=== PATIENT | male | born 1965 | race Caucasian/White ===

== ENCOUNTER 2022-11-04 22:02 | Inpatient (IN) | payer MEDICARE, OTHER ==
[~2022-11-04] VITALS: Ht 190.5 cm; Wt 142.4 kg
[2022-11-04 23:11] VITALS: BP 103/59
[2022-11-04 23:32] LABS: Basophils # (auto) 0 10 ^3/uL (0-0.2); Basophils % (auto) 0.4 % (0.0-2.0); Eosinophils # (auto) 0.2 10 ^3/uL (0-0.8); Eosinophils % (auto) 2.4 % (0.0-7.0); Hematocrit 35.5 % (41.0-53.0); Hemoglobin 11.1 g/dL (13.5-17.5); Lymphocytes # (auto) 0.8 10 ^3/uL (0.4-5.4); Lymphocytes % (auto) 10.6 % (10.0-50.0); Mean Corpuscular Hemoglobin 29.3 pg (28.0-32.0); Mean Corpuscular Hgb Conc. 31.3 g/dL (32.0-36.0); Mean Corpuscular Volume 93.5 fL (80.0-100.0); Monocytes # (auto) 0.6 10 ^3/uL (0-1.3); Monocytes % (auto) 8.9 % (0.0-12.0); Neutrophils # (auto) 5.5 10 ^3/uL (1.6-8.6); Neutrophils % (auto) 77.7 % (37.0-80.0); Red Cell Distribution Width 16.6 % (11.8-14.3); White Blood Cell 7.1 10^3/uL (4.4-10.8)
[2022-11-04 23:51] LABS: Albumin 3.2 g/dL (3.4-5.0); BUN/Creatinine Ratio 20.8; Calcium 8.9 mg/dL (8.5-10.1); Potassium 4.9 mmol/L (3.5-5.1)
[2022-11-04 23:54] LABS: Bilirubin, Total 0.8 mg/dL (0.2-1.0); Total Protein 6.8 g/dL (6.4-8.2)
[2022-11-05 00:19] VITALS: BP 94/46
[2022-11-05 02:04] VITALS: BP 87/42
[2022-11-05] MEDS ORDERED: ONDANSETRON HCL 4 MG/2 ML VIAL IV PRN (02:15)
[2022-11-05] MEDS ORDERED: ACETAMINOPHEN 500 MG TAB PO PRN (02:15)
[2022-11-05] MEDS ORDERED: METOCLOPRAMIDE HCL 5MG/ml INJ 2ml VIAL IV PRN (02:15)
[2022-11-05] MEDS ORDERED: LORazepam 0.5 MG TAB PO PRN (02:15)
[2022-11-05] MEDS ORDERED: ACETAMINOPHEN 325 MG TAB PO PRN (02:15)
[2022-11-05] MEDS ORDERED: MAALOX PLUS or MAALOX 30 ML PO PRN (02:15)
[2022-11-05] MEDS ORDERED: DOCUSATE SOD 100 MG CAP PO PRN (02:15)
[2022-11-05] MEDS ORDERED: SODIUM CHLORIDE 0.9% 1,000 ML IV SCH (02:15)
[2022-11-05] MEDS ORDERED: NOREPINEPHRINE 8 MG/250ML KIT 250 ML IV SCH (03:00)
[2022-11-05] MEDS: DexAMETHasone SOD PHOS 10MG/1ML VIAL INJ IV SCH ×2 (03:10→09:27)
[2022-11-05] MEDS: ENOXAPARIN SOD 60 MG/0.6 ML SYRINGE SC SCH ×2 (03:10→18:32)
[2022-11-05] MEDS ORDERED: DOXYCYCLINE 100MG/250ML 250 ML IV SCH (04:00)
[2022-11-05] MEDS: AZITHROMYCIN 500MG/ 250ML 250 ML IV SCH ×2 (04:05→09:28)
[2022-11-05 04:06] VITALS: BP 89/39
[2022-11-05 05:49] LABS: Basophils # (auto) 0 10 ^3/uL (0-0.2); Basophils % (auto) 0.7 % (0.0-2.0); Eosinophils # (auto) 0.1 10 ^3/uL (0-0.8); Eosinophils % (auto) 1.9 % (0.0-7.0); Hematocrit 34.9 % (41.0-53.0); Hemoglobin 11.3 g/dL (13.5-17.5); Lymphocytes # (auto) 0.7 10 ^3/uL (0.4-5.4); Lymphocytes % (auto) 10.7 % (10.0-50.0); Mean Corpuscular Hemoglobin 30.1 pg (28.0-32.0); Mean Corpuscular Hgb Conc. 32.5 g/dL (32.0-36.0); Mean Corpuscular Volume 92.6 fL (80.0-100.0); Monocytes # (auto) 0.6 10 ^3/uL (0-1.3); Monocytes % (auto) 9.8 % (0.0-12.0); Neutrophils # (auto) 4.7 10 ^3/uL (1.6-8.6); Neutrophils % (auto) 76.9 % (37.0-80.0); Red Blood Cells 3.77 10^6/uL (4.5-5.90); Red Cell Distribution Width 16.8 % (11.8-14.3); White Blood Cell 6.1 10^3/uL (4.4-10.8)
[2022-11-05 06:11] LABS: BUN/Creatinine Ratio 20.1; Potassium 5.2 mmol/L (3.5-5.1)
[2022-11-05 07:27] LABS: Urine WBC None Seen /hpf (0 - 3)
[2022-11-05 08:07] LABS: Urine Bacteria FEW /hpf (None Seen); Urine Blood Negative /uL (Negative); Urine Specific Gravity 1.011 (1.001-1.035)
[2022-11-05] MEDS: ZINC SULFATE 220mg CAP or TAB PO SCH (09:27)
[2022-11-05] MEDS: CHOLECALCIFEROL (VITD3) 2,000 UNIT CAP/TAB PO SCH (09:27)
[2022-11-05] MEDS: ASCORBIC ACID 1,000 MG TAB PO SCH (09:27)
[2022-11-05 11:43] VITALS: BP 113/64
[2022-11-05] MEDS: ALBUTEROL SULF HFA 90MCG INH 200DOSE IN PRN (11:52)
[2022-11-05] MEDS ORDERED: DEXTROSE (50%) 50ML SYRG IV PRN (12:45)
[2022-11-05] MEDS ORDERED: ASPI81CH59 PO (12:46)
[2022-11-05] MEDS ORDERED: BUSP5TAB78 PO (12:46)
[2022-11-05] MEDS ORDERED: TAMS1CAP25 PO (12:46)
[2022-11-05] MEDS ORDERED: FERR-20 PO (12:46)
[2022-11-05] MEDS ORDERED: BUME1TAB3 PO (12:46)
[2022-11-05] MEDS ORDERED: GABA-339 PO (12:46)
[2022-11-05] MEDS ORDERED: POTA10TA51 PO (12:46)
[2022-11-05] MEDS ORDERED: TRAZ50TA2 PO (12:46)
[2022-11-05] MEDS ORDERED: LISI2.5T47 PO (12:46)
[2022-11-05] MEDS ORDERED: INSUINJ3 SC (12:46)
[2022-11-05] MEDS ORDERED: ALBU0.084 NEB (12:46)
[2022-11-05] MEDS ORDERED: BISO5TAB44 PO (12:46)
[2022-11-05] MEDS ORDERED: ASPI325T4 PO (12:46)
[2022-11-05] MEDS ORDERED: ROSU1TAB14 PO (12:46)
[2022-11-05] MEDS ORDERED: DIPH25CA66 PO (12:46)
[2022-11-05] MEDS ORDERED: NORT25CA GT (12:46)
[2022-11-05] MEDS ORDERED: PRED20TA2 PO (12:46)
[2022-11-05] MEDS ORDERED: ASPirin 81 mg TAB PO ONE (13:00)
[2022-11-05] MEDS ORDERED: DOPamine 1600MCG/ML D5W 250 ML IV SCH (14:15)
[2022-11-05 14:30] VITALS: BP 134/77
[2022-11-05] MEDS ORDERED: SODIUM ZIRCONIUM CYCL 10 GM PAK PO ONE (14:30)
[2022-11-05] MEDS: GABAPENTIN 300 MG CAP PO SCH ×2 (15:17→23:18)
[2022-11-05] MEDS: SODIUM CHLORIDE 0.9% 1,000 ML IV SCH ×2 (15:18→23:18)
[2022-11-05 16:15] VITALS: BP 123/63
[2022-11-05] MEDS: InsuLIN REG 1unit/0.01ml Soln (100units/ml) SC SCH (17:24)
[2022-11-05] MEDS: ACCU-CHEK COMFORT CURVE STRIP VI SCH ×2 (17:24→23:14)
[2022-11-05] MEDS: TAMSULOSIN HYDROCHLORIDE 0.4 MG CAP PO SCH (18:32)
[2022-11-05] MEDS ORDERED: InsuLIN REG 1unit/0.01ml Soln (100units/ml) SC SCH (22:00)
[2022-11-06] MEDS: ALBUTEROL SULF HFA 90MCG INH 200DOSE IN PRN (05:23)
[2022-11-06 05:37] LABS: Basophils # (auto) 0 10 ^3/uL (0-0.2); Basophils % (auto) 0.6 % (0.0-2.0); Eosinophils # (auto) 0 10 ^3/uL (0-0.8); Eosinophils % (auto) 0.2 % (0.0-7.0); Hematocrit 37.5 % (41.0-53.0); Hemoglobin 12.1 g/dL (13.5-17.5); Lymphocytes % (auto) 20.9 % (10.0-50.0); Mean Corpuscular Hemoglobin 29.8 pg (28.0-32.0); Mean Corpuscular Hgb Conc. 32.2 g/dL (32.0-36.0); Mean Corpuscular Volume 92.6 fL (80.0-100.0); Monocytes # (auto) 0.6 10 ^3/uL (0-1.3); Monocytes % (auto) 13.2 % (0.0-12.0); Neutrophils # (auto) 3.2 10 ^3/uL (1.6-8.6); Neutrophils % (auto) 65.1 % (37.0-80.0); Nucleated Red Blood Cells % 0.1 %; Red Blood Cells 4.05 10^6/uL (4.5-5.90); Red Cell Distribution Width 16.7 % (11.8-14.3); White Blood Cell 4.9 10^3/uL (4.4-10.8)
[2022-11-06 05:54] LABS: Calcium 9.6 mg/dL (8.5-10.1); Potassium 4.6 mmol/L (3.5-5.1)
[2022-11-06] MEDS: GABAPENTIN 300 MG CAP PO SCH ×3 (06:30→22:05)
[2022-11-06] MEDS: ENOXAPARIN SOD 60 MG/0.6 ML SYRINGE SC SCH ×2 (06:31→18:32)
[2022-11-06] MEDS: ACCU-CHEK COMFORT CURVE STRIP VI SCH ×5 (06:31→22:27)
[2022-11-06] MEDS: InsuLIN REG 1unit/0.01ml Soln (100units/ml) SC SCH ×4 (06:41→22:00)
[2022-11-06] MEDS: SODIUM CHLORIDE 0.9% 1,000 ML IV SCH ×2 (09:03→11:24)
[2022-11-06] MEDS: MORPHINE SULFATE INJ 2 MG/ml SYRG IV PRN (09:29)
[2022-11-06] MEDS: AZITHROMYCIN 500MG/ 250ML 250 ML IV SCH (10:57)
[2022-11-06] MEDS: DexAMETHasone SOD PHOS 10MG/1ML VIAL INJ IV SCH (10:57)
[2022-11-06] MEDS: ASCORBIC ACID 1,000 MG TAB PO SCH (10:57)
[2022-11-06] MEDS: ASPirin 81 mg TAB PO SCH (10:58)
[2022-11-06] MEDS: CHOLECALCIFEROL (VITD3) 2,000 UNIT CAP/TAB PO SCH (10:58)
[2022-11-06] MEDS: ZINC SULFATE 220mg CAP or TAB PO SCH (11:23)
[2022-11-06] MEDS: TAMSULOSIN HYDROCHLORIDE 0.4 MG CAP PO SCH (18:32)
[2022-11-06 18:43] VITALS: BP 142/76
[2022-11-06 19:16] VITALS: BP 142/76
[2022-11-06 22:00] VITALS: BP 142/79
[2022-11-06 22:00] LABS: Protein, Urine 24.1 mg/dL (0.0-11.9)
[2022-11-06] MEDS ORDERED: InsuLIN REG 1unit/0.01ml Soln (100units/ml) SC ONE (22:00)
[2022-11-06] MEDS ORDERED: DEXTROSE (50%) 50ML SYRG IV PRN (22:00)
[2022-11-06 22:04] LABS: Creatinine, Urine 78.6 mg/dL (30.0-125.0)
[2022-11-07] VITALS (7 sets, daily range): BP systolic 113–138; BP diastolic 52–82
[2022-11-07] MEDS: MORPHINE SULFATE INJ 2 MG/ml SYRG IV PRN ×3 (01:02→21:57)
[2022-11-07] MEDS: GABAPENTIN 300 MG CAP PO SCH ×3 (06:05→21:26)
[2022-11-07] MEDS: ENOXAPARIN SOD 60 MG/0.6 ML SYRINGE SC SCH ×2 (06:06→18:00)
[2022-11-07] MEDS: SODIUM CHLORIDE 0.9% 1,000 ML IV SCH (06:06)
[2022-11-07] MEDS: ACCU-CHEK COMFORT CURVE STRIP VI SCH ×7 (06:06→21:34)
[2022-11-07] MEDS: InsuLIN REG 1unit/0.01ml Soln (100units/ml) SC SCH ×4 (06:14→21:31)
[2022-11-07 06:20] LABS: Anion Gap 9 (5-15); Blood Urea Nitrogen 34 mg/dL (7-18); Calcium 9.6 mg/dL (8.5-10.1); Carbon Dioxide 29 mmol/L (21-32); Chloride 98 mmol/L (98-107); Glucose 344 mg/dL (74-106); Potassium 4.7 mmol/L (3.5-5.1); Sodium 136 mmol/L (136-145)
[2022-11-07 06:22] LABS: BUN/Creatinine Ratio 26.8; GFR African American 75 mL/min; GFR Non-African American 62 mL/min
[2022-11-07 06:50] LABS: Basophils # (auto) 0 10 ^3/uL (0-0.2); Basophils % (auto) 0.2 % (0.0-2.0); Eosinophils # (auto) 0 10 ^3/uL (0-0.8); Eosinophils % (auto) 0.1 % (0.0-7.0); Hematocrit 41.4 % (41.0-53.0); Hemoglobin 13.3 g/dL (13.5-17.5); Lymphocytes # (auto) 1.1 10 ^3/uL (0.4-5.4); Lymphocytes % (auto) 17.4 % (10.0-50.0); Mean Corpuscular Hemoglobin 30.2 pg (28.0-32.0); Mean Corpuscular Hgb Conc. 32.1 g/dL (32.0-36.0); Mean Corpuscular Volume 94.3 fL (80.0-100.0); Monocytes # (auto) 0.4 10 ^3/uL (0-1.3); Monocytes % (auto) 6.4 % (0.0-12.0); Neutrophils # (auto) 4.7 10 ^3/uL (1.6-8.6); Neutrophils % (auto) 75.9 % (37.0-80.0); Nucleated Red Blood Cells % 0.1 %; Red Blood Cells 4.39 10^6/uL (4.5-5.90); Red Cell Distribution Width 16.2 % (11.8-14.3); White Blood Cell 6.2 10^3/uL (4.4-10.8)
[2022-11-07] MEDS ORDERED: REMDESIVIR PER PHARMACY 0 ML IV SCH (07:45)
[2022-11-07] MEDS ORDERED: REMDESIVIR 200 MG in NS 210ml LOADING DOSE ADULT IV ONE (09:00)
[2022-11-07] MEDS: ASPirin 81 mg TAB PO SCH (10:38)
[2022-11-07] MEDS: CHOLECALCIFEROL (VITD3) 2,000 UNIT CAP/TAB PO SCH (10:38)
[2022-11-07] MEDS: DexAMETHasone SOD PHOS 10MG/1ML VIAL INJ IV SCH (10:38)
[2022-11-07] MEDS: ZINC SULFATE 220mg CAP or TAB PO SCH (10:38)
[2022-11-07] MEDS: ASCORBIC ACID 1,000 MG TAB PO SCH (10:38)
[2022-11-07] MEDS: HYDROcodone-ACET 5/325MG TAB PO PRN ×2 (10:38→18:00)
[2022-11-07] MEDS: CEFTRIAXONE SODIUM 2 GM in D5W 5% 50 ML IV SCH (11:53)
[2022-11-07] MEDS: AZITHROMYCIN 500MG/ 250ML 250 ML IV SCH (13:01)
[2022-11-07] MEDS: TAMSULOSIN HYDROCHLORIDE 0.4 MG CAP PO SCH (18:00)
[2022-11-08] MEDS: SODIUM CHLORIDE 0.9% 1,000 ML IV SCH (03:00)
[2022-11-08 05:00] VITALS: BP 122/72
[2022-11-08] MEDS: InsuLIN REG 1unit/0.01ml Soln (100units/ml) SC SCH ×4 (06:32→22:00)
[2022-11-08] MEDS: ENOXAPARIN SOD 60 MG/0.6 ML SYRINGE SC SCH ×2 (06:33→13:17)
[2022-11-08] MEDS: ACCU-CHEK COMFORT CURVE STRIP VI SCH ×8 (06:33→22:00)
[2022-11-08] MEDS: GABAPENTIN 300 MG CAP PO SCH ×3 (06:33→22:00)
[2022-11-08] MEDS: HYDROcodone-ACET 5/325MG TAB PO PRN ×3 (06:34→22:36)
[2022-11-08 07:27] LABS: Albumin 3.1 g/dL (3.4-5.0); BUN/Creatinine Ratio 28.9; Calcium 9.5 mg/dL (8.5-10.1); Potassium 4.3 mmol/L (3.5-5.1)
[2022-11-08 07:29] LABS: Bilirubin, Total 0.5 mg/dL (0.2-1.0); Total Protein 7.5 g/dL (6.4-8.2)
[2022-11-08 08:00] VITALS: BP 122/70
[2022-11-08 09:00] VITALS: BP 122/70
[2022-11-08] MEDS: DexAMETHasone SOD PHOS 10MG/1ML VIAL INJ IV SCH (10:21)
[2022-11-08] MEDS: ZINC SULFATE 220mg CAP or TAB PO SCH (10:22)
[2022-11-08] MEDS: ASPirin 81 mg TAB PO SCH (10:22)
[2022-11-08] MEDS: CHOLECALCIFEROL (VITD3) 2,000 UNIT CAP/TAB PO SCH (10:22)
[2022-11-08] MEDS: ASCORBIC ACID 1,000 MG TAB PO SCH (10:22)
[2022-11-08] MEDS: MORPHINE SULFATE INJ 2 MG/ml SYRG IV PRN ×2 (10:23→17:45)
[2022-11-08] MEDS: CEFTRIAXONE SODIUM 2 GM in D5W 5% 50 ML IV SCH (10:23)
[2022-11-08] MEDS: AZITHROMYCIN 500MG/ 250ML 250 ML IV SCH (11:42)
[2022-11-08 13:00] VITALS: BP 121/77
[2022-11-08] MEDS ORDERED: INSULIN LANTUS (GLARGINE) 1 /0.01ml (100units/ml) SC ONE (14:15)
[2022-11-08 17:00] VITALS: BP 144/89
[2022-11-08] MEDS: REMDESIVIR 100mg 100 MG in SODIUM CHL 0.9% 230 ML IV SCH (17:36)
[2022-11-08] MEDS: TAMSULOSIN HYDROCHLORIDE 0.4 MG CAP PO SCH (18:07)
[2022-11-08 22:00] VITALS: BP 129/71
[2022-11-08] MEDS: INSULIN LANTUS (GLARGINE) 1 /0.01ml (100units/ml) SC SCH (22:00)
[2022-11-09] MEDS: TEMAZEPAM 15 MG CAP PO PRN ×2 (00:34→21:54)
[2022-11-09 05:00] VITALS: BP 124/82
[2022-11-09] MEDS: GABAPENTIN 300 MG CAP PO SCH ×3 (06:00→21:43)
[2022-11-09] MEDS: ACCU-CHEK COMFORT CURVE STRIP VI SCH ×8 (06:45→21:43)
[2022-11-09] MEDS: InsuLIN REG 1unit/0.01ml Soln (100units/ml) SC SCH ×4 (07:05→21:46)
[2022-11-09 09:00] VITALS: BP 108/72
[2022-11-09] MEDS: CEFTRIAXONE SODIUM 2 GM in D5W 5% 50 ML IV SCH (09:52)
[2022-11-09] MEDS: AZITHROMYCIN 500MG/ 250ML 250 ML IV SCH (09:52)
[2022-11-09] MEDS: HYDROcodone-ACET 5/325MG TAB PO PRN ×3 (09:53→21:55)
[2022-11-09] MEDS: CHOLECALCIFEROL (VITD3) 2,000 UNIT CAP/TAB PO SCH (09:53)
[2022-11-09] MEDS: DexAMETHasone SOD PHOS 10MG/1ML VIAL INJ IV SCH (09:53)
[2022-11-09] MEDS: ASPirin 81 mg TAB PO SCH (09:53)
[2022-11-09] MEDS: ZINC SULFATE 220mg CAP or TAB PO SCH (09:53)
[2022-11-09] MEDS: ASCORBIC ACID 1,000 MG TAB PO SCH (09:54)
[2022-11-09] MEDS: ENOXAPARIN SOD 30 MG/0.3 ML SYRINGE SC SCH (09:54)
[2022-11-09 13:00] VITALS: BP 127/81
[2022-11-09] MEDS: REMDESIVIR 100mg 100 MG in SODIUM CHL 0.9% 230 ML IV SCH (15:16)
[2022-11-09 17:00] VITALS: BP 131/78
[2022-11-09] MEDS: TAMSULOSIN HYDROCHLORIDE 0.4 MG CAP PO SCH (17:02)
[2022-11-09] MEDS: INSULIN LANTUS (GLARGINE) 1 /0.01ml (100units/ml) SC SCH (21:45)
[2022-11-09 22:00] VITALS: BP 106/78
[2022-11-10 05:00] VITALS: BP 119/66
[2022-11-10] MEDS: GABAPENTIN 300 MG CAP PO SCH ×2 (06:17→14:00)
[2022-11-10] MEDS: ACCU-CHEK COMFORT CURVE STRIP VI SCH ×4 (06:17→11:14)
[2022-11-10] MEDS: HYDROcodone-ACET 5/325MG TAB PO PRN ×2 (06:18→11:21)
[2022-11-10] MEDS: InsuLIN REG 1unit/0.01ml Soln (100units/ml) SC SCH ×2 (06:21→11:14)
[2022-11-10 07:01] LABS: Potassium 4.4 mmol/L (3.5-5.1)
[2022-11-10 07:11] LABS: Albumin 3.4 g/dL (3.4-5.0); BUN/Creatinine Ratio 27.1; Bilirubin, Total 0.6 mg/dL (0.2-1.0); Calcium 9.4 mg/dL (8.5-10.1); Total Protein 7.6 g/dL (6.4-8.2)
[2022-11-10 08:00] VITALS: BP 117/67
[2022-11-10] MEDS: ASCORBIC ACID 1,000 MG TAB PO SCH (09:24)
[2022-11-10] MEDS: ASPirin 81 mg TAB PO SCH (09:25)
[2022-11-10] MEDS: ZINC SULFATE 220mg CAP or TAB PO SCH (09:25)
[2022-11-10] MEDS: CHOLECALCIFEROL (VITD3) 2,000 UNIT CAP/TAB PO SCH (09:25)
[2022-11-10] MEDS: ENOXAPARIN SOD 30 MG/0.3 ML SYRINGE SC SCH (09:26)
[2022-11-10] MEDS: DexAMETHasone SOD PHOS 10MG/1ML VIAL INJ IV SCH (09:26)
[2022-11-10] MEDS ORDERED: CHOL1CAP47 PO (10:25)
[2022-11-10] MEDS ORDERED: ASCO500T11 PO (10:25)
[2022-11-10] MEDS ORDERED: ZINC220C10 PO (10:25)
[2022-11-10 12:00] VITALS: BP 131/79
[2022-11-10 13:59] VITALS: BP 117/67
[2022-11-10] MEDS: REMDESIVIR 100mg 100 MG in SODIUM CHL 0.9% 230 ML IV SCH (14:19)
[2022-11-10 16:00] VITALS: BP 127/62
== END 2022-11-10 17:04 | disposition home or self-care (01) | DRG 177 ==
LOC: ER 22:02 → EDBD 22:02 → TELE 11-05 02:25 → TELE-WESTW 11-06 17:25
PROVIDERS: ADMIT Hospitalist; ATTEND Internal Medicine Geriatric Medicine
PROC: 5A09357 Assistance with Respiratory Ventilation, Less than 24 Consecutive Hours, Continuous Positive Airway Pressure (ICD-10-PCS; 2022-11-04)
PROC: XW033E5 Introduction of Remdesivir Anti-infective into Peripheral Vein, Percutaneous Approach, New Technology Group 5 (ICD-10-PCS; principal; 2022-11-07)
PROC: 05H933Z Insertion of Infusion Device into Right Brachial Vein, Percutaneous Approach (ICD-10-PCS; 2022-11-08)
PROC: B54MZZA Ultrasonography of Right Upper Extremity Veins, Guidance (ICD-10-PCS; 2022-11-08)
DX: U07.1 COVID-19 (principal); J12.82 Pneumonia due to coronavirus disease 2019; N17.0 Acute kidney failure with tubular necrosis; J96.21 Acute and chronic respiratory failure with hypoxia; J44.1 Chronic obstructive pulmonary disease with (acute) exacerbation; E66.2 Morbid (severe) obesity with alveolar hypoventilation; J44.0 Chronic obstructive pulmonary disease with (acute) lower respiratory infection; E11.42 Type 2 diabetes mellitus with diabetic polyneuropathy; N18.9 Chronic kidney disease, unspecified; D63.1 Anemia in chronic kidney disease; E11.22 Type 2 diabetes mellitus with diabetic chronic kidney disease; E11.51 Type 2 diabetes mellitus with diabetic peripheral angiopathy without gangrene; Z68.39 Body mass index [BMI] 39.0-39.9, adult; E87.5 Hyperkalemia; I50.9 Heart failure, unspecified; Z79.4 Long term (current) use of insulin
CPT/HCPCS: 36415; 36600; 70450; 71045; 76775; 80048; 80053; 81001; 82306; 82570; 82805; 82962; 83605; 83880; 83970; 84100; 84156; 84300; 84484; 85025; 87040; 87070; 87077; 87081; 87186; 87205; 87426; 93005; 94640; 94660; 96361; 96365; 96367; 96375; 99291; G0378; J0696; J1100; J1815; J2405; J3490; J7060